=== PATIENT | female | born 1985 | race Caucasian/White ===

== ENCOUNTER 2016-09-17 08:02 | Emergency (ER) | payer OTHER ==
[~2016-09-17 08:02] MED LIST: ACET50TA PO; IBUP60TA PO; IBUP80TA PO; MOTR200T44 PO; prenatal vit OR
[2016-09-17] MEDS ORDERED: ONDANSETRON 4MG/2ML VIAL (J2405) As Ordered ONE (08:37)
[2016-09-17 08:59] LABS: BASO # 0.1 K/mm3 (0.0-0.2); BASO % 1.4 % (0.0-1.0); EOS % 0.7 % (0.0-3.0); LARGE UNSTAINED CELL # 0.1 K/mm3 (0.0-0.4); LARGE UNSTAINED CELL % 1.4 % (0.0-4.0); LYMPH # 1.9 K/mm3 (1.5-6.5); LYMPH % 26.3 % (24.0-44.0); MEAN CORPUSCULAR HGB CONC 33.5 g/dl (32.0-36.5); MEAN CORPUSCULAR VOLUME 86.6 fl (80.0-96.0); MONO # 0.3 K/mm3 (0.0-0.8); MONO % 4.5 % (0.0-5.0); NEUTROPHILS # 4.6 K/mm3 (1.8-7.7); NEUTROPHILS % 65.7 % (36.0-66.0); PLATELET COUNT, AUTOMATED 392 k/mm3 (150-450); RED CELL DISTRIBUTION WIDTH 12.5 % (11.5-14.5); WHITE BLOOD COUNT 6.9 K/mm3 (4.0-10.0)
--- NOTE | 2016-09-17 09:12 | REP ---
Clinical: Biliary colic. Technique: Real time lara scale and color ultrasound evaluation using curved array transducer. Findings: Liver and pancreas are normal in contour, size, echogenicity without focal hepatic or pancreatic lesions identified. Gallbladder demonstrates an 8 mm mobile nonshadowing structure likely representing tumor effective sludge ball. There is no wall thickening, pericholecystic fluid, or biliary ductal dilatation. Common bile duct measures 2.0 mm diameter and no sonographic Zuniga's sign was elicited during examination. The right kidney is normal in reniform shape without hydronephrosis and measures 10.8 x 5.5 x 3.8 cm. No ascites in the visualized right upper quadrant. Impression: Mobile tumefactive sludge ball within the gallbladder. Otherwise normal right upper quadrant ultrasound. Signed by Valentin Strickland MD 09/17/2016 09:03 A
[2016-09-17 09:42] LABS: ALBUMIN 4.7 GM/DL (3.2-5.2); ALBUMIN/GLOBULIN RATIO 1.21 (1.00-1.93); ALKALINE PHOSPHATASE 64 U/L (45-117); ALT/SGPT 19 U/L (12-78); ANION GAP 10 MEQ/L (8-16); AST/SGOT 12 U/L (15-37); BILIRUBIN,DIRECT 0.2 MG/DL (0.0-0.2); BILIRUBIN,TOTAL 0.6 MG/DL (0.2-1.0); BLOOD UREA NITROGEN 7 MG/DL (7-18); CALCIUM LEVEL 9.2 MG/DL (8.5-10.1); CARBON DIOXIDE LEVEL 27 MEQ/L (21-32); CHLORIDE LEVEL 103 MEQ/L (98-107); CREATININE FOR GFR 0.72 MG/DL (0.55-1.02); GLOMERULAR FILTRATION RATE > 60.0 (>60); GLUCOSE, FASTING 110 MG/DL (70-105); POTASSIUM SERUM 3.4 MEQ/L (3.5-5.1); SODIUM LEVEL 140 MEQ/L (136-145); T UPTAKE 32 % (30-39); THYROXINE (T4) 12.5 UG/DL (4.5-12.0); TOTAL PROTEIN 8.6 GM/DL (6.4-8.2)
--- NOTE | 2016-09-17 10:08 | EDDOCDS ---
Physician Documentation [facility] Name: Ervin Metzger Age: 31 yrs Sex: Female : 1985 Arrival Date: 09/17/2016 Time: 08:02 Bed I2 / M2 Private MD: Jef Brown D Disposition: 09/17/16 10:00 Discharged to Home/Self Care. Impression: Nausea and vomiting - biliary colic. - Condition is Stable. - Discharge Instructions: Biliary Colic, Nausea and Vomiting. - Prescriptions for Zantac 300 mg Oral Tablet - take 1 tablet by ORAL route At bedtime; 30 tablet. ZOFRAN ODT 4 mg - dissolve 1 tablet by ORAL route 4 times per day As needed do not chew, do not swallow whole; 10 tablet. - Medication Reconciliation, Local Pharmacy Hours form. - Follow up: Emergency Department; When: As needed. Follow up: Pramod Beard DO; When: Call to arrange an appointment; Reason: Wound/Symptom Recheck, Recheck today's complaints, Worsening of conditions, Continuance of care. - Problem is an ongoing problem. - Symptoms are unchanged. Historical: - Allergies: No known drug Allergies; - Home Meds: 1. none - PMHx: Lorena's Disease; - PSHx: partial thyroidectomy; Tonsillectomy; Hernia repair; - Social history: Smoking status: Patient states was never smoker of tobacco. No barriers to communication noted, The patient speaks fluent Greenlandic. - Family history: Not pertinent. - : The pt / caregiver states he / she is not on anticoagulants. Home medication list is obtained from the patient. - Exposure Risk Screening:: None identified. 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 7 in. (170.18 cm); Pain /10; 09:21 BP 95 / 54; Pulse 63; Resp 16; Temp 98.8(O); Pulse Ox 100% on R/A; kr3 08:10 Body Mass Index 20.36 (58.97 kg, 170.18 cm) kcs MDM: 08:26 Ondansetron 4 mg IVP once ordered. cc10 08:26 IV Saline Lock ordered. cc10 08:26 Undress patient appropriately for examination ordered. cc10 08:26 UCG by Nursing ordered. cc10 08:26 NS 0.9% 500 ml IV at bolus once ordered. cc10 08:27 Basic Metabolic Profile Ordered. EDMS 08:27 CBC with Diff Ordered. EDMS 08:27 Lipase Ordered. EDMS 08:27 Liver Profile Ordered. EDMS 08:27 Urinalysis Ordered. EDMS 08:27 Thyroid Profile Ordered. EDMS 08:28 Gallbladder US Ordered. EDMS 08:28 NOTHING BY MOUTH+DIET ordered. EDMS 09:14 Financial registration complete. lg 09:53 Basic Metabolic Profile Reviewed. cc10 09:53 CBC with Diff Reviewed. cc10 09:53 Liver Profile Reviewed. cc10 09:53 Urinalysis Reviewed. cc10 09:53 Thyroid Profile Reviewed. cc10 09:53 Lipase Reviewed. cc10 09:53 Gallbladder US Reviewed. cc10 Point of Care Testing: Urine : 09:05 hCG Reading: Negative; kr3 Ranges: Administered Medications: 08:53 Drug: Ondansetron 4 mg [ondansetron HCl 2 mg/mL intravenous solution (2 mL)] Route: kr3 IVP; Site: right antecubital; 09:45 Follow up: Response: Nausea is resolved kr3 08:53 Drug: NS 0.9% 500 ml [sodium chloride 0.9 % intravenous solution] Route: IV; Rate: kr3 bolus; Site: right antecubital; 09:21 Follow up: BP 95 / 54; Pulse 63 bpm; Resp 16 bpm; Temp 98.8 Oral; Pulse Ox 100% RA; IV kr3 Status: Completed infusion; IV Intake: 500ml Signatures: Dispatcher [employer] EDRachel Loya RN RN Jaycee Howell Reg Reg lg Robie, Kathleen, RN RN kr3 Jaime Hobbs PA-C PA-C cc10 MTDD
--- NOTE | 2016-09-17 10:08 | EDDOCDS ---
Nurse's Notes [facility] Name: Ervin Metzger Age: 31 yrs Sex: Female : 1985 Arrival Date: 09/17/2016 Time: 08:02 Bed I2 / M2 Private MD: Jef Brown D Diagnosis: Nausea and vomiting-biliary colic Presentation: 09/17 08:06 Presenting complaint: Patient states: since Wednesday when she goes to bed at night - kcs she wakes up to vomit - no dizziness but head pressure that goes into her stomach. Adult Sepsis Screening: The patient does not have new or worsening altered mentation. Patient's respiratory rate is less than 22. Systolic blood pressure is greater than 100. Patient has a qSOFA score of 0- Negative Sepsis Screen. Suicide/Homicide risk assessment- the patient denies having any suicidal and/or homicidal ideations and does not present with any other emotional, behavioral or mental health complaints. Status: Patient is not a service learning coordinator or dependent. Transition of care: patient was not received from another setting of care. 08:06 Acuity: EFRA Level 3 kcs 08:06 Method Of Arrival: Walkin/Carried/Asstd kcs 08:14 Presenting complaint: Patient states: Has not had an appetite since [facility] and has been kcs losing a lot of weight. Having some difficulty with management of her thyroid. Triage Assessment: 08:10 General: Appears comfortable, slender, well developed, well nourished, well groomed, kcs Behavior is cooperative, pleasant. Pain: Location: head pressure Pain currently is 1 out of 10 on a pain scale. Pt Declines HIV testing. Neurological: Level of Consciousness is awake, alert. Respiratory: Airway is patent Respiratory effort is even, unlabored, Respiratory pattern is regular, symmetrical. Derm: Skin is intact, is healthy with good turgor, Skin is dry, Skin is normal. 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 none - PMHx: Lorena's Disease; - PSHx: partial thyroidectomy; Tonsillectomy; Hernia repair; - Social history: Smoking status: Patient states was never smoker of tobacco. No barriers to communication noted, The patient speaks fluent Nauruan. - Family history: Not pertinent. - : The pt / caregiver states he / she is not on anticoagulants. Home medication list is obtained from the patient. - Exposure Risk Screening:: None identified. Screenin:38 Screening information is obtained from the patient. Fall risk: No risks identified. kr3 Assistance ADL's: requires no assistance with activities of daily living. Abuse/DV Screen: The patient / caregiver reports he/she is: not in a situation that causes fear, pain or injury. Nutritional screening: No deficits noted. Advance Directives: Currently, there is no health care proxy. home support is adequate. Assessment: 08:38 General: Appears in no apparent distress, comfortable, Behavior is appropriate for age. kr3 Pain: Location: top of head Pain currently is 2 out of 10 on a pain scale. Neurological: Level of Consciousness is awake, alert, Moves all extremities. Gait is steady, Speech is normal. Respiratory: Respiratory effort is even, unlabored. GI: Bowel sounds present X 4 quads. Abd is soft and non tender X 4 quads. Reports no appetite. Derm: Skin is normal. 09:21 Reassessment: Patient denies pain at this time. Patient states feeling better. GI: kr3 Denies nausea. 10:07 Reassessment: Patient appears in no apparent distress at this time. Patient states kr3 feeling better. Vital Signs: 08:10 BP 112 / 76; Pulse 126; Resp 20; Temp 97.9(O); Pulse Ox 100% on R/A; Weight 58.97 kg; kcs Height 5 ft. 7 in. (170.18 cm); Pain /10; 09:21 BP 95 / 54; Pulse 63; Resp 16; Temp 98.8(O); Pulse Ox 100% on R/A; kr3 08:10 Body Mass Index 20.36 (58.97 kg, 170.18 cm) kcs Vitals: 08:10 Log In Time: September 17, 2016 at 08:01. [facility] ED Course: 08:03 Patient visited by Jaycee Christensen Reg. lg 08:03 Patient moved to Waiting lg 08:04 Jef Brown is Private Physician. lg 08:07 Triage Initiated kcs 08:15 Jaime Hobbs PA-C is PHCP. cc10 08:15 Noel Clark MD is Attending Physician. cc10 08:15 Patient visited by Jaime Hobbs PA-C. cc10 08:15 Patient visited by Jaime Hobbs PA-C. cc10 08:15 Patient moved to I2 / M2 kcs 08:36 Thyroid Profile Sent. kr3 08:36 Basic Metabolic Profile Sent. kr3 08:36 CBC with Diff Sent. kr3 08:36 Lipase Sent. kr3 08:36 Liver Profile Sent. kr3 08:36 Urinalysis Sent. kr3 08:37 Patient moved to Ultrasound am10 08:38 Inserted saline lock: 20 gauge in right antecubital area and blood collected. The kr3 patient tolerated the procedure well. 08:40 The patient / caregiver is instructed regarding the plan of care and ED course. kr3 Accompanied by Family Member, Patient has correct armband on for positive identification. Placed in gown. Bed in low position. Call light in reach. Side rails up X 1. 08:53 Patient visited by Heaven Jean-Baptiste RN. kr3 08:53 Patient moved to I2 / M2 am10 09:40 Patient has correct armband on for positive identification. Bed in low position. Call jam1 light in reach. Side rails up X 1. Door closed. 09:44 Patient visited by Heaven Jean-Baptiste RN. kr3 09:47 Gallbladder US Returned. EDMS 10:00 Pramod Beard DO is Referral Physician. cc10 10:06 Discontinued lock intact, bleeding controlled, pressure dressing applied, No kr3 redness/swelling at site. No procedures done that require assistance. Administered Medications: 08:53 Drug: Ondansetron 4 mg [ondansetron HCl 2 mg/mL intravenous solution (2 mL)] Route: kr3 IVP; Site: right antecubital; 09:45 Follow up: Response: Nausea is resolved kr3 08:53 Drug: NS 0.9% 500 ml [sodium chloride 0.9 % intravenous solution] Route: IV; Rate: kr3 bolus; Site: right antecubital; 09:21 Follow up: BP 95 / 54; Pulse 63 bpm; Resp 16 bpm; Temp 98.8 Oral; Pulse Ox 100% RA; IV kr3 Status: Completed infusion; IV Intake: 500ml Point of Care Testing: Urine : 09:05 hCG Reading: Negative; kr3 Ranges: Intake: 09:21 IV: 500.00ml; Total: 500.00ml. kr3 Order Results: Lab Order: Basic Metabolic Profile; SPEC'09/17/16 08:33 Test: GLUCOSE, FASTING; Value: 110; Range: 70-105; Abnormal: Above high normal; Units: MG/DL; Status: F Test: BLOOD UREA NITROGEN; Value: 7; Range: 7-18; Units: MG/DL; Status: F Test: CREATININE FOR GFR; Value: 0.72; Range: 0.55-1.02; Units: MG/DL; Status: F Test: GLOMERULAR FILTRATION RATE; Value: > 60.0; Range: >60; Status: F Test: SODIUM LEVEL; Value: 140; Range: 136-145; Units: MEQ/L; Status: F Test: POTASSIUM SERUM; Value: 3.4; Range: 3.5-5.1; Abnormal: Below low normal; Units: MEQ/L; Status: F Test: CHLORIDE LEVEL; Value: 103; Range: 98-107; Units: MEQ/L; Status: F Test: CARBON DIOXIDE LEVEL; Value: 27; Range: 21-32; Units: MEQ/L; Status: F Test: ANION GAP; Value: 10; Range: 8-16; Units: MEQ/L; Status: F Test: CALCIUM LEVEL; Value: 9.2; Range: 8.5-10.1; Units: MG/DL; Status: F Test Note: ; Units are mL/min/1.73 m2 Chronic Kidney Disease Staging per NKF: Stage I & II GFR >=60 Normal to Mildly Decreased Stage III GFR 30-59 Moderately Decreased Stage IV GFR 15-29 Severely Decreased Stage V GFR <15 Very Little GFR Left ESRD GFR <15 on PARTS ADMINISTRATOR Lab Order: CBC with Diff; SPEC'M 09/17/16 08:33 Test: WHITE BLOOD COUNT; Value: 6.9; Range: 4.0-10.0; Units: K/mm3; Status: F Test: RED BLOOD COUNT; Value: 4.84; Range: 4.00-5.40; Units: M/mm3; Status: F Test: HEMOGLOBIN; Value: 14.0; Range: 12.0-16.0; Units: g/dl; Status: F Test: HEMATOCRIT; Value: 41.9; Range: 36.0-47.0; Units: %; Status: F Test: MEAN CORPUSCULAR VOLUME; Value: 86.6; Range: 80.0-96.0; Units: fl; Status: F Test: MEAN CORPUSCULAR HEMOGLOBIN; Value: 29.0; Range: 27.0-33.0; Units: pg; Status: F Test: MEAN CORPUSCULAR HGB CONC; Value: 33.5; Range: 32.0-36.5; Units: g/dl; Status: F Test: RED CELL DISTRIBUTION WIDTH; Value: 12.5; Range: 11.5-14.5; Units: %; Status: F Test: PLATELET COUNT, AUTOMATED; Value: 392; Range: 150-450; Units: k/mm3; Status: F Test: NEUTROPHILS %; Value: 65.7; Range: 36.0-66.0; Units: %; Status: F Test: LYMPH %; Value: 26.3; Range: 24.0-44.0; Units: %; Status: F Test: MONO %; Value: 4.5; Range: 0.0-5.0; Units: %; Status: F Test: EOS %; Value: 0.7; Range: 0.0-3.0; Units: %; Status: F Test: BASO %; Value: 1.4; Range: 0.0-1.0; Abnormal: Above high normal; Units: %; Status: F Test: LARGE UNSTAINED CELL %; Value: 1.4; Range: 0.0-4.0; Units: %; Status: F Test: NEUTROPHILS #; Value: 4.6; Range: 1.8-7.7; Units: K/mm3; Status: F Test: LYMPH #; Value: 1.9; Range: 1.5-6.5; Units: K/mm3; Status: F Test: MONO #; Value: 0.3; Range: 0.0-0.8; Units: K/mm3; Status: F Test: EOS #; Value: 0.0; Range: 0.0-0.50; Units: K/mm3; Status: F Test: BASO #; Value: 0.1; Range: 0.0-0.2; Units: K/mm3; Status: F Test: LARGE UNSTAINED CELL #; Value: 0.1; Range: 0.0-0.4; Units: K/mm3; Status: F Lab Order: Lipase; [facility]' 09/17/16 08:33 Test: LIPASE; Value: 149; Range: 73-393; Units: U/L; Status: F Lab Order: Liver Profile; [facility]' 09/17/16 08:33 Test: AST/SGOT; Value: 12; Range: 15-37; Abnormal: Below low normal; Units: U/L; Status: F Test: ALT/SGPT; Value: 19; Range: 12-78; Units: U/L; Status: F Test: ALKALINE PHOSPHATASE; Value: 64; Range: 45-117; Units: U/L; Status: F Test: BILIRUBIN,TOTAL; Value: 0.6; Range: 0.2-1.0; Units: MG/DL; Status: F Test: BILIRUBIN,DIRECT; Value: 0.2; Range: 0.0-0.2; Units: MG/DL; Status: F Test: TOTAL PROTEIN; Value: 8.6; Range: 6.4-8.2; Abnormal: Above high normal; Units: GM/DL; Status: F Test: ALBUMIN; Value: 4.7; Range: 3.2-5.2; Units: GM/DL; Status: F Test: ALBUMIN/GLOBULIN RATIO; Value: 1.21; Range: 1.00-1.93; Status: F Lab Order: Urinalysis; [facility] 09/17/16 08:33 Test: APPEARANCE, URINE; Value: CLEAR; Range: CLEAR; Status: F Test: COLOR, URINE; Value: YELLOW; Range: YELLOW; Status: F Test: PH,URINE; Value: 7.0; Range: 5.0-9.0; Units: UNITS; Status: F Test: SPECIFIC GRAVITY URINE AUTO; Value: 1.024; Range: 1.002-1.035; Status: F Test: PROTEIN, URINE AUTO; Value: 1+; Range: NEGATIVE; Abnormal: Above high normal; Units: mg/dL; Status: F Test: GLUCOSE, URINE (UA) AUTO; Value: NEGATIVE; Range: NEGATIVE; Units: mg/dL; Status: F Test: KETONE, URINE AUTO; Value: TRACE; Range: NEGATIVE; Abnormal: Above high normal; Units: mg/dL; Status: F Test: UROBILINOGEN, URINE AUTO; Value: 0.2; Range: 0.0-2.0; Units: mg/dL; Status: F Test: BILIRUBIN, URINE AUTO; Value: NEGATIVE; Range: NEGATIVE; Status: F Test: NITRITE, URINE AUTO; Value: NEGATIVE; Range: NEGATIVE; Status: F Test: LEUKOCYTE ESTERASE, URINE AUTO; Value: NEGATIVE; Range: NEGATIVE; Status: F Test: BLOOD, URINE BLOOD; Value: NEGATIVE; Range: NEGATIVE; Status: F Test: WBC, URINE AUTO; Value: 0; Range: 0-3; Units: /HPF; Status: F Test: RBC, URINE AUTO; Value: 3; Range: 0-3; Units: /HPF; Status: F Test: BACTERIA, URINE AUTO; Value: NEGATIVE; Range: NEGATIVE; Status: F Test: SQUAMOUS EPITHELIAL CELL UR AU; Value: 1; Range: 0-6; Units: /HPF; Status: F Test: MUCUS, URINE; Value: LARGE; Range: NEGATIVE; Status: F Test: HYALINE CAST, URINE AUTO; Value: 0; Range: 0-1; Units: /LPF; Status: F Lab Order: Thyroid Profile; SPEC'M 09/17/16 08:33 Test: T UPTAKE; Value: 32; Range: 30-39; Units: %; Status: F Test: THYROXINE (T4); Value: 12.5; Range: 4.5-12.0; Abnormal: Above high normal; Units: UG/DL; Status: F Test: FREE THYROXINE INDEX; Value: 4.0; Range: 1.3-4.8; Units: %; Status: F Test: THYROID STIMULATING HORMONE; Value: 2.110; Range: 0.358-3.740; Units: uIU/ML; Status: F Radiology Order: Gallbladder US Test: Gallbladder US REASON FOR EXAMINATION: Biliary Colic; Clinical: Biliary colic.; ; Technique: Real time lara scale and color ultrasound evaluation using curved; array transducer.; ; Findings:; Liver and pancreas are normal in contour, size, echogenicity without focal; hepatic or pancreatic lesions identified. Gallbladder demonstrates an 8 mm; mobile nonshadowing structure likely representing tumor effective sludge ball.; There is no wall thickening, pericholecystic fluid, or biliary ductal dilatation.; Common bile duct measures 2.0 mm diameter and no sonographic Zuniga's sign was; elicited during examination. The right kidney is normal in reniform shape; without hydronephrosis and measures 10.8 x 5.5 x 3.8 cm. No ascites in the; visualized right upper quadrant.; ; Impression:; Mobile tumefactive sludge ball within the gallbladder.; Otherwise normal right upper quadrant ultrasound.; ; ; Signed by; Valentin Strickland MD 09/17/2016 09:03 A; Outcome: 10:00 Discharge ordered by Provider. cc10 10:06 Discharge Assessment: patient administered narcotics - no. The following High Risk kr3 Discharge criteria are identified: None. Discharged to home ambulatory, with family. Condition: improved. Discharge instructions given to patient, Instructed on discharge instructions, follow up and referral plans. medication usage, diet, Demonstrated understanding of instructions, medications, Pt was receptive of discharge instructions/ teaching. Prescriptions given X 2. Ultrasound Study completed. Property sent home with patient. 10:07 Patient left the ED. kr3 Signatures: Dispatcher [employer] EDMS Rachel Mcneil, RN RN kcs Salud Zuniga, TERMITE CONTROL TECHNICIAN TERMITE CONTROL TECHNICIAN jam1 Jaycee Christensen, Reg Reg lg Heaven Jean-Baptiste,RN RN kr3 Jeri Vitale am10 Jaime Hobbs PA-C PAKileyC cc10 Corrections: (The following items were deleted from the chart) 08:14 08:10 BP 112 / 76; Pulse 126bpm; Resp 20bpm; Pulse Ox 100% RA; 58.97 kg; Height 5 ft. 7 kcs in.; BMI: 20.3; Pain 1/10; kcs MTDD
--- NOTE | 2016-09-19 11:08 | EDDOCDS ---
Physician Documentation [facility] Name: Ervin Mtezger Age: 31 yrs Sex: Female : 1985 Arrival Date: 09/17/2016 Time: 08:02 Bed I2 / M2 Private MD: Jef Brown D Disposition: 09/17/16 10:00 Discharged to Home/Self Care. Impression: Nausea and vomiting - biliary colic. - Condition is Stable. - Discharge Instructions: Biliary Colic, Nausea and Vomiting. - Prescriptions for Zantac 300 mg Oral Tablet - take 1 tablet by ORAL route At bedtime; 30 tablet. ZOFRAN ODT 4 mg - dissolve 1 tablet by ORAL route 4 times per day As needed do not chew, do not swallow whole; 10 tablet. - Medication Reconciliation, Local Pharmacy Hours form. - Follow up: Emergency Department; When: As needed. Follow up: Pramod Beard DO; When: Call to arrange an appointment; Reason: Wound/Symptom Recheck, Recheck today's complaints, Worsening of conditions, Continuance of care. - Problem is an ongoing problem. - Symptoms are unchanged. Historical: - Allergies: No known drug Allergies; - Home Meds: 1. none - PMHx: Lorena's Disease; - PSHx: partial thyroidectomy; Tonsillectomy; Hernia repair; - Social history: Smoking status: Patient states was never smoker of tobacco. No barriers to communication noted, The patient speaks fluent Polish. - Family history: Not pertinent. - : The pt / caregiver states he / she is not on anticoagulants. Home medication list is obtained from the patient. - Exposure Risk Screening:: None identified. 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 7 in. (170.18 cm); Pain /10; 09:21 BP 95 / 54; Pulse 63; Resp 16; Temp 98.8(O); Pulse Ox 100% on R/A; kr3 08:10 Body Mass Index 20.36 (58.97 kg, 170.18 cm) kcs MDM: 08:26 Ondansetron 4 mg IVP once ordered. cc10 08:26 IV Saline Lock ordered. cc10 08:26 Undress patient appropriately for examination ordered. cc10 08:26 UCG by Nursing ordered. cc10 08:26 NS 0.9% 500 ml IV at bolus once ordered. cc10 08:27 Basic Metabolic Profile Ordered. EDMS 08:27 CBC with Diff Ordered. EDMS 08:27 Lipase Ordered. EDMS 08:27 Liver Profile Ordered. EDMS 08:27 Urinalysis Ordered. EDMS 08:27 Thyroid Profile Ordered. EDMS 08:28 Gallbladder US Ordered. EDMS 08:28 NOTHING BY MOUTH+DIET ordered. EDMS 09:14 Financial registration complete. lg 09:53 Basic Metabolic Profile Reviewed. cc10 09:53 CBC with Diff Reviewed. cc10 09:53 Liver Profile Reviewed. cc10 09:53 Urinalysis Reviewed. cc10 09:53 Thyroid Profile Reviewed. cc10 09:53 Lipase Reviewed. cc10 09:53 Gallbladder US Reviewed. cc10 10:31 [facility] [place] Payment Agreement was scanned into [employer] and attached to record. lg 13:54 T-Sheet-- Draft Copy was scanned into [employer] and attached to record. Point of Care Testing: Urine : 09:05 hCG Reading: Negative; kr3 Ranges: Administered Medications: 08:53 Drug: Ondansetron 4 mg [ondansetron HCl 2 mg/mL intravenous solution (2 mL)] Route: kr3 IVP; Site: right antecubital; 09:45 Follow up: Response: Nausea is resolved kr3 08:53 Drug: NS 0.9% 500 ml [sodium chloride 0.9 % intravenous solution] Route: IV; Rate: kr3 bolus; Site: right antecubital; 09:21 Follow up: BP 95 / 54; Pulse 63 bpm; Resp 16 bpm; Temp 98.8 Oral; Pulse Ox 100% RA; IV kr3 Status: Completed infusion; IV Intake: 500ml Signatures: Dispatcher [employer] Rachel Melendez, RN ORALIA kcs Gregoria Chambers, Reg Reg gb Jaycee Christensen, Reg Reg lg Heaven Jean-Baptiste RN RN kr3 Jaime Hobbs, PAKileyC PAKileyC cc10 The chart was reviewed and I authenticate all verbal orders and agree with the evaluation and treatment provided.Attachments: 10:31 [facility] Payment Agreement lg 13:54 T-Sheet-- Draft Copy gb Chart Complete MTDD
--- NOTE | 2016-09-19 11:08 | EDDOCDS ---
Physician Documentation [facility] Name: Ervin Metzger Age: 31 yrs Sex: Female : 1985 Arrival Date: 09/17/2016 Time: 08:02 Bed I2 / M2 Private MD: Jef Brown D Disposition: 09/17/16 10:00 Discharged to Home/Self Care. Impression: Nausea and vomiting - biliary colic. - Condition is Stable. - Discharge Instructions: Biliary Colic, Nausea and Vomiting. - Prescriptions for Zantac 300 mg Oral Tablet - take 1 tablet by ORAL route At bedtime; 30 tablet. ZOFRAN ODT 4 mg - dissolve 1 tablet by ORAL route 4 times per day As needed do not chew, do not swallow whole; 10 tablet. - Medication Reconciliation, Local Pharmacy Hours form. - Follow up: Emergency Department; When: As needed. Follow up: Pramod Beard DO; When: Call to arrange an appointment; Reason: Wound/Symptom Recheck, Recheck today's complaints, Worsening of conditions, Continuance of care. - Problem is an ongoing problem. - Symptoms are unchanged. Historical: - Allergies: No known drug Allergies; - Home Meds: 1. none - PMHx: Lorena's Disease; - PSHx: partial thyroidectomy; Tonsillectomy; Hernia repair; - Social history: Smoking status: Patient states was never smoker of tobacco. No barriers to communication noted, The patient speaks fluent Swedish. - Family history: Not pertinent. - : The pt / caregiver states he / she is not on anticoagulants. Home medication list is obtained from the patient. - Exposure Risk Screening:: None identified. 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 7 in. (170.18 cm); Pain /10; 09:21 BP 95 / 54; Pulse 63; Resp 16; Temp 98.8(O); Pulse Ox 100% on R/A; kr3 08:10 Body Mass Index 20.36 (58.97 kg, 170.18 cm) kcs MDM: 08:26 Ondansetron 4 mg IVP once ordered. cc10 08:26 IV Saline Lock ordered. cc10 08:26 Undress patient appropriately for examination ordered. cc10 08:26 UCG by Nursing ordered. cc10 08:26 NS 0.9% 500 ml IV at bolus once ordered. cc10 08:27 Basic Metabolic Profile Ordered. EDMS 08:27 CBC with Diff Ordered. EDMS 08:27 Lipase Ordered. EDMS 08:27 Liver Profile Ordered. EDMS 08:27 Urinalysis Ordered. EDMS 08:27 Thyroid Profile Ordered. EDMS 08:28 Gallbladder US Ordered. EDMS 08:28 NOTHING BY MOUTH+DIET ordered. EDMS 09:14 Financial registration complete. lg 09:53 Basic Metabolic Profile Reviewed. cc10 09:53 CBC with Diff Reviewed. cc10 09:53 Liver Profile Reviewed. cc10 09:53 Urinalysis Reviewed. cc10 09:53 Thyroid Profile Reviewed. cc10 09:53 Lipase Reviewed. cc10 09:53 Gallbladder US Reviewed. cc10 10:31 [facility] [place] was scanned into [employer] and attached to record. lg 13:54 T-Sheet-- Draft Copy was scanned into [employer] and attached to record. Point of Care Testing: Urine : 09:05 hCG Reading: Negative; kr3 Ranges: Administered Medications: 08:53 Drug: Ondansetron 4 mg [ondansetron HCl 2 mg/mL intravenous solution (2 mL)] Route: kr3 IVP; Site: right antecubital; 09:45 Follow up: Response: Nausea is resolved kr3 08:53 Drug: NS 0.9% 500 ml [sodium chloride 0.9 % intravenous solution] Route: IV; Rate: kr3 bolus; Site: right antecubital; 09:21 Follow up: BP 95 / 54; Pulse 63 bpm; Resp 16 bpm; Temp 98.8 Oral; Pulse Ox 100% RA; IV kr3 Status: Completed infusion; IV Intake: 500ml Signatures: Dispatcher [employer] Rachel Melendez, RN ORALIA kcs Gregoria Chambers, Reg Reg gb Jaycee Christensen, Reg Reg lg Heaven Jean-Baptiste RN RN kr3 Jaime Hobbs, PAKileyC PAKileyC cc10 The chart was reviewed and I authenticate all verbal orders and agree with the evaluation and treatment provided.Attachments: 10:31 [facility] Payment Agreement lg 13:54 T-Sheet-- Draft Copy gb Chart Complete MTDD
--- NOTE | 2016-09-19 11:08 | EDDOCDS ---
Nurse's Notes [facility] Name: Ervin Metzger Age: 31 yrs Sex: Female : 1985 Arrival Date: 09/17/2016 Time: 08:02 Bed I2 / M2 Private MD: Jef Brown D Diagnosis: Nausea and vomiting-biliary colic Presentation: 09/17 08:06 Presenting complaint: Patient states: since Wednesday when she goes to bed at night - kcs she wakes up to vomit - no dizziness but head pressure that goes into her stomach. Adult Sepsis Screening: The patient does not have new or worsening altered mentation. Patient's respiratory rate is less than 22. Systolic blood pressure is greater than 100. Patient has a qSOFA score of 0- Negative Sepsis Screen. Suicide/Homicide risk assessment- the patient denies having any suicidal and/or homicidal ideations and does not present with any other emotional, behavioral or mental health complaints. 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 Transition of care: patient was not received from another setting of care. 08:06 Acuity: EFRA Level 3 kcs 08:06 Method Of Arrival: Walkin/Carried/Asstd kcs 08:14 Presenting complaint: Patient states: Has not had an appetite since [place] and has been kcs losing a lot of weight. Having some difficulty with management of her thyroid. Triage Assessment: 08:10 General: Appears comfortable, slender, well developed, well nourished, well groomed, kcs Behavior is cooperative, pleasant. Pain: Location: head pressure Pain currently is 1 out of 10 on a pain scale. Pt Declines HIV testing. Neurological: Level of Consciousness is awake, alert. Respiratory: Airway is patent Respiratory effort is even, unlabored, Respiratory pattern is regular, symmetrical. Derm: Skin is intact, is healthy with good turgor, Skin is dry, Skin is normal. 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 none - PMHx: Lorena's Disease; - PSHx: partial thyroidectomy; Tonsillectomy; Hernia repair; - Social history: Smoking status: Patient states was never smoker of tobacco. No barriers to communication noted, The patient speaks fluent Andorran. - Family history: Not pertinent. - : The pt / caregiver states he / she is not on anticoagulants. Home medication list is obtained from the patient. - Exposure Risk Screening:: None identified. Screenin:38 Screening information is obtained from the patient. Fall risk: No risks identified. kr3 Assistance ADL's: requires no assistance with activities of daily living. Abuse/DV Screen: The patient / caregiver reports he/she is: not in a situation that causes fear, pain or injury. Nutritional screening: No deficits noted. Advance Directives: Currently, there is no health care proxy. home support is adequate. Assessment: 08:38 General: Appears in no apparent distress, comfortable, Behavior is appropriate for age. kr3 Pain: Location: top of head Pain currently is 2 out of 10 on a pain scale. Neurological: Level of Consciousness is awake, alert, Moves all extremities. Gait is steady, Speech is normal. Respiratory: Respiratory effort is even, unlabored. GI: Bowel sounds present X 4 quads. Abd is soft and non tender X 4 quads. Reports no appetite. Derm: Skin is normal. 09:21 Reassessment: Patient denies pain at this time. Patient states feeling better. GI: kr3 Denies nausea. 10:07 Reassessment: Patient appears in no apparent distress at this time. Patient states kr3 feeling better. Vital Signs: 08:10 BP 112 / 76; Pulse 126; Resp 20; Temp 97.9(O); Pulse Ox 100% on R/A; Weight 58.97 kg; kcs Height 5 ft. 7 in. (170.18 cm); Pain /10; 09:21 BP 95 / 54; Pulse 63; Resp 16; Temp 98.8(O); Pulse Ox 100% on R/A; kr3 08:10 Body Mass Index 20.36 (58.97 kg, 170.18 cm) kcs Vitals: 08:10 Log In Time: September 17, 2016 at 08:01. [facility] ED Course: 08:03 Patient visited by Jaycee Christensen Reg. lg 08:03 Patient moved to Waiting lg 08:04 Jef Brown is Private Physician. lg 08:07 Triage Initiated kcs 08:15 Jaime Hobbs PA-C is PHCP. cc10 08:15 Noel Clark MD is Attending Physician. cc10 08:15 Patient visited by Jaime Hobbs PA-C. cc10 08:15 Patient visited by Jaime Hobbs PA-C. cc10 08:15 Patient moved to I2 / M2 kcs 08:36 Thyroid Profile Sent. kr3 08:36 Basic Metabolic Profile Sent. kr3 08:36 CBC with Diff Sent. kr3 08:36 Lipase Sent. kr3 08:36 Liver Profile Sent. kr3 08:36 Urinalysis Sent. kr3 08:37 Patient moved to Ultrasound am10 08:38 Inserted saline lock: 20 gauge in right antecubital area and blood collected. The kr3 patient tolerated the procedure well. 08:40 The patient / caregiver is instructed regarding the plan of care and ED course. kr3 Accompanied by Family Member, Patient has correct armband on for positive identification. Placed in gown. Bed in low position. Call light in reach. Side rails up X 1. 08:53 Patient visited by Heaven Jean-Baptiste RN. kr3 08:53 Patient moved to I2 / M2 am10 09:40 Patient has correct armband on for positive identification. Bed in low position. Call jam1 light in reach. Side rails up X 1. Door closed. 09:44 Patient visited by Heaven Jean-Baptiste RN. kr3 09:47 Gallbladder US Returned. EDMS 10:00 Pramod Beard DO is Referral Physician. cc10 10:06 Discontinued lock intact, bleeding controlled, pressure dressing applied, No kr3 redness/swelling at site. No procedures done that require assistance. 10:31 [facility] [place] was scanned into [employer] and attached to record. 13:54 T-Sheet-- Draft Copy was scanned into [employer] and attached to record. gb Administered Medications: 08:53 Drug: Ondansetron 4 mg [ondansetron HCl 2 mg/mL intravenous solution (2 mL)] Route: kr3 IVP; Site: right antecubital; 09:45 Follow up: Response: Nausea is resolved kr3 08:53 Drug: NS 0.9% 500 ml [sodium chloride 0.9 % intravenous solution] Route: IV; Rate: kr3 bolus; Site: right antecubital; 09:21 Follow up: BP 95 / 54; Pulse 63 bpm; Resp 16 bpm; Temp 98.8 Oral; Pulse Ox 100% RA; IV kr3 Status: Completed infusion; IV Intake: 500ml Point of Care Testing: Urine : 09:05 hCG Reading: Negative; kr3 Ranges: Intake: 09:21 IV: 500.00ml; Total: 500.00ml. kr3 Order Results: Lab Order: Basic Metabolic Profile; SPEC'M 09/17/16 08:33 Test: GLUCOSE, FASTING; Value: 110; Range: 70-105; Abnormal: Above high normal; Units: MG/DL; Status: F Test: BLOOD UREA NITROGEN; Value: 7; Range: 7-18; Units: MG/DL; Status: F Test: CREATININE FOR GFR; Value: 0.72; Range: 0.55-1.02; Units: MG/DL; Status: F Test: GLOMERULAR FILTRATION RATE; Value: > 60.0; Range: >60; Status: F Test: SODIUM LEVEL; Value: 140; Range: 136-145; Units: MEQ/L; Status: F Test: POTASSIUM SERUM; Value: 3.4; Range: 3.5-5.1; Abnormal: Below low normal; Units: MEQ/L; Status: F Test: CHLORIDE LEVEL; Value: 103; Range: 98-107; Units: MEQ/L; Status: F Test: CARBON DIOXIDE LEVEL; Value: 27; Range: 21-32; Units: MEQ/L; Status: F Test: ANION GAP; Value: 10; Range: 8-16; Units: MEQ/L; Status: F Test: CALCIUM LEVEL; Value: 9.2; Range: 8.5-10.1; Units: MG/DL; Status: F Test Note: ; Units are mL/min/1.73 m2 Chronic Kidney Disease Staging per NKF: Stage I & II GFR >=60 Normal to Mildly Decreased Stage III GFR 30-59 Moderately Decreased Stage IV GFR 15-29 Severely Decreased Stage V GFR <15 Very Little GFR Left ESRD GFR <15 on SAFETY COMPANION Lab Order: CBC with Diff; SPEC'M 09/17/16 08:33 Test: WHITE BLOOD COUNT; Value: 6.9; Range: 4.0-10.0; Units: K/mm3; Status: F Test: RED BLOOD COUNT; Value: 4.84; Range: 4.00-5.40; Units: M/mm3; Status: F Test: HEMOGLOBIN; Value: 14.0; Range: 12.0-16.0; Units: g/dl; Status: F Test: HEMATOCRIT; Value: 41.9; Range: 36.0-47.0; Units: %; Status: F Test: MEAN CORPUSCULAR VOLUME; Value: 86.6; Range: 80.0-96.0; Units: fl; Status: F Test: MEAN CORPUSCULAR HEMOGLOBIN; Value: 29.0; Range: 27.0-33.0; Units: pg; Status: F Test: MEAN CORPUSCULAR HGB CONC; Value: 33.5; Range: 32.0-36.5; Units: g/dl; Status: F Test: RED CELL DISTRIBUTION WIDTH; Value: 12.5; Range: 11.5-14.5; Units: %; Status: F Test: PLATELET COUNT, AUTOMATED; Value: 392; Range: 150-450; Units: k/mm3; Status: F Test: NEUTROPHILS %; Value: 65.7; Range: 36.0-66.0; Units: %; Status: F Test: LYMPH %; Value: 26.3; Range: 24.0-44.0; Units: %; Status: F Test: MONO %; Value: 4.5; Range: 0.0-5.0; Units: %; Status: F Test: EOS %; Value: 0.7; Range: 0.0-3.0; Units: %; Status: F Test: BASO %; Value: 1.4; Range: 0.0-1.0; Abnormal: Above high normal; Units: %; Status: F Test: LARGE UNSTAINED CELL %; Value: 1.4; Range: 0.0-4.0; Units: %; Status: F Test: NEUTROPHILS #; Value: 4.6; Range: 1.8-7.7; Units: K/mm3; Status: F Test: LYMPH #; Value: 1.9; Range: 1.5-6.5; Units: K/mm3; Status: F Test: MONO #; Value: 0.3; Range: 0.0-0.8; Units: K/mm3; Status: F Test: EOS #; Value: 0.0; Range: 0.0-0.50; Units: K/mm3; Status: F Test: BASO #; Value: 0.1; Range: 0.0-0.2; Units: K/mm3; Status: F Test: LARGE UNSTAINED CELL #; Value: 0.1; Range: 0.0-0.4; Units: K/mm3; Status: F Lab Order: Lipase; [facility]' 09/17/16 08:33 Test: LIPASE; Value: 149; Range: 73-393; Units: U/L; Status: F Lab Order: Liver Profile; [facility]' 09/17/16 08:33 Test: AST/SGOT; Value: 12; Range: 15-37; Abnormal: Below low normal; Units: U/L; Status: F Test: ALT/SGPT; Value: 19; Range: 12-78; Units: U/L; Status: F Test: ALKALINE PHOSPHATASE; Value: 64; Range: 45-117; Units: U/L; Status: F Test: BILIRUBIN,TOTAL; Value: 0.6; Range: 0.2-1.0; Units: MG/DL; Status: F Test: BILIRUBIN,DIRECT; Value: 0.2; Range: 0.0-0.2; Units: MG/DL; Status: F Test: TOTAL PROTEIN; Value: 8.6; Range: 6.4-8.2; Abnormal: Above high normal; Units: GM/DL; Status: F Test: ALBUMIN; Value: 4.7; Range: 3.2-5.2; Units: GM/DL; Status: F Test: ALBUMIN/GLOBULIN RATIO; Value: 1.21; Range: 1.00-1.93; Status: F Lab Order: Urinalysis; [facility]' 09/17/16 08:33 Test: APPEARANCE, URINE; Value: CLEAR; Range: CLEAR; Status: F Test: COLOR, URINE; Value: YELLOW; Range: YELLOW; Status: F Test: PH,URINE; Value: 7.0; Range: 5.0-9.0; Units: UNITS; Status: F Test: SPECIFIC GRAVITY URINE AUTO; Value: 1.024; Range: 1.002-1.035; Status: F Test: PROTEIN, URINE AUTO; Value: 1+; Range: NEGATIVE; Abnormal: Above high normal; Units: mg/dL; Status: F Test: GLUCOSE, URINE (UA) AUTO; Value: NEGATIVE; Range: NEGATIVE; Units: mg/dL; Status: F Test: KETONE, URINE AUTO; Value: TRACE; Range: NEGATIVE; Abnormal: Above high normal; Units: mg/dL; Status: F Test: UROBILINOGEN, URINE AUTO; Value: 0.2; Range: 0.0-2.0; Units: mg/dL; Status: F Test: BILIRUBIN, URINE AUTO; Value: NEGATIVE; Range: NEGATIVE; Status: F Test: NITRITE, URINE AUTO; Value: NEGATIVE; Range: NEGATIVE; Status: F Test: LEUKOCYTE ESTERASE, URINE AUTO; Value: NEGATIVE; Range: NEGATIVE; Status: F Test: BLOOD, URINE BLOOD; Value: NEGATIVE; Range: NEGATIVE; Status: F Test: WBC, URINE AUTO; Value: 0; Range: 0-3; Units: /HPF; Status: F Test: RBC, URINE AUTO; Value: 3; Range: 0-3; Units: /HPF; Status: F Test: BACTERIA, URINE AUTO; Value: NEGATIVE; Range: NEGATIVE; Status: F Test: SQUAMOUS EPITHELIAL CELL UR AU; Value: 1; Range: 0-6; Units: /HPF; Status: F Test: MUCUS, URINE; Value: LARGE; Range: NEGATIVE; Status: F Test: HYALINE CAST, URINE AUTO; Value: 0; Range: 0-1; Units: /LPF; Status: F Lab Order: Thyroid Profile; SPEC'M 09/17/16 08:33 Test: T UPTAKE; Value: 32; Range: 30-39; Units: %; Status: F Test: THYROXINE (T4); Value: 12.5; Range: 4.5-12.0; Abnormal: Above high normal; Units: UG/DL; Status: F Test: FREE THYROXINE INDEX; Value: 4.0; Range: 1.3-4.8; Units: %; Status: F Test: THYROID STIMULATING HORMONE; Value: 2.110; Range: 0.358-3.740; Units: uIU/ML; Status: F Radiology Order: Gallbladder US Test: Gallbladder US REASON FOR EXAMINATION: Biliary Colic; Clinical: Biliary colic.; ; Technique: Real time lara scale and color ultrasound evaluation using curved; array transducer.; ; Findings:; Liver and pancreas are normal in contour, size, echogenicity without focal; hepatic or pancreatic lesions identified. Gallbladder demonstrates an 8 mm; mobile nonshadowing structure likely representing tumor effective sludge ball.; There is no wall thickening, pericholecystic fluid, or biliary ductal dilatation.; Common bile duct measures 2.0 mm diameter and no sonographic Zuniga's sign was; elicited during examination. The right kidney is normal in reniform shape; without hydronephrosis and measures 10.8 x 5.5 x 3.8 cm. No ascites in the; visualized right upper quadrant.; ; Impression:; Mobile tumefactive sludge ball within the gallbladder.; Otherwise normal right upper quadrant ultrasound.; ; ; Signed by; Valentin Strickland MD 09/17/2016 09:03 A; Outcome: 10:00 Discharge ordered by Provider. cc10 10:06 Discharge Assessment: patient administered narcotics - no. The following High Risk kr3 Discharge criteria are identified: None. Discharged to home ambulatory, with family. Condition: improved. Discharge instructions given to patient, Instructed on discharge instructions, follow up and referral plans. medication usage, diet, Demonstrated understanding of instructions, medications, Pt was receptive of discharge instructions/ teaching. Prescriptions given X 2. Ultrasound Study completed. Property sent home with patient. 10:07 Patient left the ED. kr3 Signatures: Dispatcher [employer] EDMS Rachel Mcneil RN RN kcs Salud Zuniga, WAITER/WAITRESS CABIN CLASS WAITER/WAITRESS CABIN CLASS jam1 Gregoria Chambers, Reg Reg gb Jaycee Christensen, Reg Reg lg Heaven Jean-Baptiste RN RN kr3 Jeri Vitale am10 Jaime Hobbs, PA-C PA-C cc10 Corrections: (The following items were deleted from the chart) 08:14 08:10 BP 112 / 76; Pulse 126bpm; Resp 20bpm; Pulse Ox 100% RA; 58.97 kg; Height 5 ft. 7 kcs in.; BMI: 20.3; Pain 1/10; kcs Chart Complete MTDD
== END 2016-09-17 10:07 | disposition home or self-care (01) ==
LOC: M ED 08:02
DX: K80.50 Calculus of bile duct without cholangitis or cholecystitis without obstruction (principal); R11.2 Nausea with vomiting, unspecified; E06.3 Autoimmune thyroiditis
CPT/HCPCS: 36415; 76705; 80048; 80076; 81001; 81025; 83690; 84436; 84443; 84479; 85025; 96374; 99284; J2405

== ENCOUNTER → 2016-09-28 | Outpatient (CLI) | payer OTHER ==
--- NOTE | 2016-09-29 02:59 | REP ---
Clinical: Follow up nontoxic nodular goiter. Comparison: 07/15/2016. Findings: The patient is noted to be status post right thyroidectomy. The left thyroid lobe is heterogeneous and enlarged measuring 6.3 x 1.8 x 2.0 cm. 11 x 4 x 7 mm nodule adjacent to the isthmus is again identified and unchanged. No further significant cystic or nodule identified. Impression: Nonspecific hypoechoic nodule adjacent to the isthmus unchanged. Signed by Valentin Strickland MD 09/29/2016 02:51 A
== END ==
LOC: M RAD 11:22
PROVIDERS: ATTEND Otolaryngology
DX: E04.1 Nontoxic single thyroid nodule (principal)

== ENCOUNTER → 2016-10-16 | Outpatient (CLI) | payer OTHER | LOC: M SMT 14:57 | PROVIDERS: ATTEND Physician Assistant Medical | DX: E04.2 Nontoxic multinodular goiter (principal) ==

== ENCOUNTER → 2017-04-09 | Outpatient (REF) | payer OTHER ==
[2017-04-09 11:43] LABS: FREE T4 0.96 NG/DL (0.76-1.46)
== END ==
LOC: M LABDRAWC 10:36
PROVIDERS: ATTEND Internal Medicine Endocrinology, Diabetes & Metabolism
DX: E04.2 Nontoxic multinodular goiter (principal)

== ENCOUNTER → 2017-05-21 | Outpatient (REF) | payer OTHER | LOC: M LAB REF 12:59 | PROVIDERS: ATTEND Advanced Practice Midwife | DX: Z12.4 Encounter for screening for malignant neoplasm of cervix (principal) ==

== ENCOUNTER → 2018-03-24 | Outpatient (REF) | payer OTHER ==
[2018-03-24 19:23] LABS: FREE T4 0.95 NG/DL (0.76-1.46)
== END ==
LOC: M LAB REF 16:48
DX: E04.2 Nontoxic multinodular goiter (principal)
CPT/HCPCS: 84443

== ENCOUNTER → 2023-08-06 | Outpatient (CLI) | payer OTHER ==
[~2023-08-06] MED LIST changes: -ACET50TA PO; +IBUP600T42 PO; -IBUP60TA PO; +MAPA500T17 PO; +MAPA500T2 PO
[2023-08-06 13:37] LABS: THYROID STIMULATING HORMONE 1.399 uIU/ML (0.55-4.78)
== END ==
LOC: M PLALAB 09:58
PROVIDERS: ATTEND Obstetrics & Gynecology
DX: Z12.4 Encounter for screening for malignant neoplasm of cervix (principal)
CPT/HCPCS: 36415; 84439; 84443; 87624; G0123

== ENCOUNTER → 2023-08-09 | Outpatient (CLI) | payer OTHER | LOC: M RAD 12:09 | PROVIDERS: ATTEND Obstetrics & Gynecology | DX: N83.201 Unspecified ovarian cyst, right side (principal) ==

== ENCOUNTER → 2023-10-06 | Outpatient (REF) | payer OTHER | LOC: M LAB REF 16:24 | PROVIDERS: ATTEND Physician Assistant | DX: J02.9 Acute pharyngitis, unspecified (principal) ==

== ENCOUNTER → 2024-12-22 | Outpatient (REF) | payer OTHER ==
[2024-12-22 18:23] LABS: THYROID STIMULATING HORMONE 1.752 uIU/ML (0.55-4.78)
[2024-12-22 18:24] LABS: FREE THYROXINE INDEX 2.7 % (1.3-4.8); T UPTAKE 32.6 % (22.5-37.0); THYROXINE (T4) 8.4 UG/DL (4.5-10.9)
== END ==
LOC: M PLALAB 13:15
PROVIDERS: ATTEND Obstetrics & Gynecology
DX: E06.3 Autoimmune thyroiditis (principal)

== ENCOUNTER → 2025-03-19 | Outpatient (REF) | payer OTHER ==
[2025-03-19 18:56] LABS: BASO # 0.0 10^3/uL (0.0-0.2); BASO % 0.6 % (0.0-1.0); EOS # 0.1 10^3/uL (0.0-0.5); EOS % 2.0 % (0.0-3.0); LYMPH # 2.2 10^3/uL (1.5-5.0); LYMPH % 44.6 % (24.0-44.0); MONO # 0.5 10^3/uL (0.0-0.8); MONO % 9.4 % (2.0-8.0); NEUTROPHILS # 2.2 10^3/uL (1.5-8.5); NEUTROPHILS % 43.2 % (36.0-66.0); PLATELET COUNT, AUTOMATED 344 10^3/uL (150-450)
[2025-03-19 19:05] LABS: ALT/SGPT 10 U/L (7.0-40); AST/SGOT 14 U/L (<34); CALCIUM LEVEL 8.8 MG/DL (8.5-10.1); CARBON DIOXIDE LEVEL 24 MMOL/L (20-31); CHLORIDE LEVEL 106 MMOL/L (98-107); CHOLESTEROL LEVEL 168 MG/DL (<200); CHOLESTEROL RISK RATIO 2.37 (<5); CREATININE FOR GFR 0.67 MG/DL (0.55-1.30); FREE T4 0.95 NG/DL (0.89-1.76); GLOMERULAR FILTRATION RATE > 90.0 (>60); LDL CHOLESTEROL 89.8 MG/DL (<100); NON-HDL-C 97.2 MG/DL; POTASSIUM SERUM 4.4 MMOL/L (3.5-5.1); SODIUM LEVEL 141 MMOL/L (136-145); TRIGLYCERIDES LEVEL 37 MG/DL (<150)
[2025-03-20 10:12] LABS: IRON (FE) 26 UG/DL (50-170); PERCENT SATURATION 7.1 % (13.2-45.0)
[2025-03-20 10:15] LABS: VITAMIN B12 LEVEL 385 PG/ML (211-911)
== END ==
LOC: M SFHCCLAY 11:02
PROVIDERS: ATTEND Physician Assistant Medical
DX: E06.3 Autoimmune thyroiditis (principal); E89.0 Postprocedural hypothyroidism; E04.1 Nontoxic single thyroid nodule; Z13.220 Encounter for screening for lipoid disorders

== ENCOUNTER → 2025-04-09 | Outpatient (CLI) | payer OTHER | LOC: M RAD 15:24 | PROVIDERS: ATTEND Physician Assistant Medical | DX: E04.1 Nontoxic single thyroid nodule (principal) ==

== ENCOUNTER → 2025-07-11 | Outpatient (REF) | payer OTHER ==
[2025-07-11 12:34] LABS: BASO # 0.0 10^3/uL (0.0-0.2); BASO % 0.9 % (0.0-1.0); EOS # 0.2 10^3/uL (0.0-0.5); EOS % 3.3 % (0.0-3.0); LYMPH # 2.2 10^3/uL (1.5-5.0); LYMPH % 47.7 % (24.0-44.0); MONO # 0.4 10^3/uL (0.0-0.8); MONO % 9.8 % (2.0-8.0); NEUTROPHILS # 1.7 10^3/uL (1.5-8.5); NEUTROPHILS % 38.1 % (36.0-66.0); PLATELET COUNT, AUTOMATED 312 10^3/uL (150-450)
[2025-07-11 12:38] LABS: IRON (FE) 61.0 UG/DL (50-170)
[2025-07-11 12:40] LABS: PERCENT SATURATION 18.4 % (13.2-45.0)
== END ==
LOC: M SFHCCLAY 09:28
PROVIDERS: ATTEND Physician Assistant Medical
DX: D50.9 Iron deficiency anemia, unspecified (principal)